=== PATIENT | female | born 1980 | race Caucasian/White ===

== ENCOUNTER 2021-07-11 17:29 | Emergency (ER) | payer OTHER ==
[~2021-07-11 17:29] MED LIST: MOTRIN600 MG PO; ROBAXIN500 MG PO
[2021-07-11 20:03] LABS: BASOPHIL 0.4 % (0-2); EOSINOPHIL 0 % (0-5); HCT 43.8 % (37.0-47.0); HGB 14.9 g/dl (12.5-16.0); LYMPHOCYTE 40.5 % (15-48); MCH 30.3 pg (25.0-31.0); MCV 89.2 fL (78.0-100.0); MPV 10.1 fL (6.0-9.5); NEUTROPHIL 38.9 % (41-80); NRBC 0; PLT 202 K/uL (150-400); RBC 4.91 M/uL (4.20-5.40); RDW 12.2 % (11.5-14.0); WBC 4.8 K/uL (4.0-10.5)
[2021-07-11 20:30] LABS: BUN/CREAT RATIO (CALC) 8.8 RATIO; CREATININE 0.8 mg/dL (0.51-0.95); POTASSIUM 3.6 mmol/L (3.5-5.1)
[2021-07-11] MEDS ORDERED: RIZATRIPTAN10 M1 SL (20:40)
[2021-07-11] MEDS ORDERED: NAPROXEN500 MG PO (20:40)
[2021-07-12] MEDS ORDERED: PEPCID AC20 MG PO (09:47)
== END 2021-07-11 21:52 | disposition home or self-care (01) ==
LOC: FER 17:29
PROVIDERS: Internal Medicine
DX: G43.909 Migraine, unspecified, not intractable, without status migrainosus (principal); F17.210 Nicotine dependence, cigarettes, uncomplicated
CPT/HCPCS: 36415; 80048; 85025; 96372; J1885; J3030

== ENCOUNTER 2021-07-12 08:08 | Emergency (ER) | payer OTHER ==
[~2021-07-12 08:08] MED LIST changes: +NAPROXEN500 MG PO; +RIZATRIPTAN10 M1 SL
[2021-07-12 09:01] LABS: BASOPHIL 0.9 % (0-2); EOSINOPHIL 0.7 % (0-5); HCT 43.5 % (37.0-47.0); LYMPHOCYTE 43.8 % (15-48); MCH 30.4 pg (25.0-31.0); MCHC 34.5 g/dL (32.0-36.0); MCV 88.2 fL (78.0-100.0); MONOCYTE 15.2 % (0-12); MPV 10.6 fL (6.0-9.5); NEUTROPHIL 39.2 % (41-80); NRBC 0; PLT 213 K/uL (150-400); RBC 4.93 M/uL (4.20-5.40); RDW 12.3 % (11.5-14.0); WBC 4.5 K/uL (4.0-10.5)
[2021-07-12 09:32] LABS: CREATININE 0.81 mg/dL (0.51-0.95)
[2021-07-12 09:44] LABS: POTASSIUM 3.6 mmol/L (3.5-5.1)
[2021-07-12] MEDS ORDERED: PEPCID AC20 MG PO (09:47)
== END 2021-07-12 09:58 | disposition home or self-care (01) ==
LOC: FER 08:08
PROVIDERS: Emergency Medicine
DX: K21.9 Gastro-esophageal reflux disease without esophagitis (principal); R07.89 Other chest pain; F17.200 Nicotine dependence, unspecified, uncomplicated
CPT/HCPCS: 36415; 71045; 80048; 84484; 85025; 93005